=== PATIENT | female | born 1980 | race Caucasian/White ===

== ENCOUNTER 2017-02-27 14:52 | Emergency (ER) | payer MEDICAID ==
[~2017-02-27] VITALS: Ht 157.5 cm; Wt 84.0 kg
[~2017-02-27 14:52] MED LIST: ABILIFY15 MG PO; ACTOS15 M1 PO; ACTOS30 M1 PO; ANTIVERT25 MG PO; BACTRIM DS TAB1 EAC2 PO; BENTYL20 MG PO; CLARITIN10 M6 PO; ESTRACE1 M3 PO; FENOFIBRATE145 M2 PO; FEOSOL PO; FLEXERIL 10MG PO; FLEXERIL10 MG PO; GEODON40 M1 PO; GLUCOPHAGE1000 M1 PO; GLUCOPHAGE500 M1 PO; GLUCOPHAGE500 MG PO; GLUCOTROL XL10 M1 PO; HUMALOG100 UNITS/ SC; HYDRALAZINE HCL50 M1 PO; HYDROCORTISONE30 G7 APL; LANTUS100 U/ML SC; LANTUS100 UNITS/ SC; LEVAQUIN750 M1 PO; LIPITOR40 M1 PO; LITHIUM CARBON150 M1 PO; LITHOBID300 M1 PO; MEDROL4 MG/DOSE- PO; MELOXICAM15 MG PO; MOBIC15 M2 PO; MORPHINE; NAPROXEN500 MG PO; NORCO 5-325 TA1 EACH PO; NORCO 5/325 TAB1 TAB PO; NORCO 7.5/325 T1 TAB PO; NYSTATIN-TRIAMC15 G1 TP; PERCOCET 5MG/AP1 TAB PO; PHENERGAN25 M1 PO; PRILOSEC OTC20 M1 PO; PRILOSEC OTC20 MG PO; PRILOSEC40 MG PO; PROPRANOLOL HCL80 M2 PO; PROTONIX40 M2 PO; PROZAC10 M PO; PROZAC20 M2 PO; PROZAC20 M3 PO; PROZAC20 MG; SYNTHROID112 MC1 PO; TRAZODONE HCL50 M1 PO; TRESIBA FL100 UNIT/1 SC; TYLENOL #31 TAB PO; TYLENOL500 MG PO; VITAMIN D35000 UNI2 PO; ZANTAC150 MG PO
[2017-02-27] MEDS ORDERED: PRILOSEC10 M3 PO (15:17)
[2017-02-27] MEDS ORDERED: TRULICITY0.75 MG/0. SC (15:18)
[2017-02-27] MEDS ORDERED: NORCO 5-325 TA1 EACH PO (15:56)
== END 2017-02-27 16:12 ==
LOC: EDMED 14:52
DX: M25.512 Pain in left shoulder (principal)